=== PATIENT | female | born 1990 | race Caucasian/White ===

== ENCOUNTER 2018-11-08 23:40 | Emergency (ER) | payer OTHER ==
--- NOTE | 2018-11-09 00:24 | ED Physician Documentation ---
PD HPI ABD PAIN - Stated complaint Stated Complaint: ABD PX/VOMITING - Chief complaint Chief Complaint: Abd Pain - History obtained from History obtained from: Patient - History of Present Illness Timing - onset: Enter time (22:45) Timing - details: Abrupt onset, Waxing and waning Pain level now: 8 Quality: Cramping, Pain Location: Periumbilical Radiation: Other (no radiation) Improved by: Other (no ameliorating factors) Worsened by: Other (no exacerbating factors) Associated symptoms: Nausea, Vomiting, Diarrhea. No: Fever, Constipation Similar symptoms before: Has not had sx before Recently seen: Not recently seen Review of Systems Constitutional: denies: Fever, Chills, Sweats Cardiac: reports: Reviewed and negative Respiratory: reports: Reviewed and negative GI: reports: Abdominal Pain, Nausea, Vomiting, Diarrhea : denies: Dysuria, Frequency, Now EGA Musculoskeletal: reports: Reviewed and negative PD PAST MEDICAL HISTORY - Past Medical History Past Medical History: No - Past Surgical History Past Surgical History: No - Present Medications Home Medications: Ambulatory Orders Medication Instructions Recorded Confirmed Bcp 11/08/18 Diphenoxylate/Atropine [Lomotil] 1 each PO QID PRN #14 tablet 11/09/18 Ondansetron Odt [Zofran] 4 mg TL Q6H PRN #10 tablet 11/09/18 oxyCODONE [Roxicodone] 5 - 10 mg PO Q6H PRN #14 tablet 11/09/18 - Allergies Allergies/Adverse Reactions: Allergies Allergy/AdvReac Type Severity Reaction Status Date / Time No Known Drug Allergies Allergy Verified 11/08/18 23:56 - Living Situation Living Arrangement: reports: At home (visiting [place] from [place]) PD ED PE NORMAL - Vitals Vital signs reviewed: Yes - General General: Alert and oriented X 3, No acute distress (NAD at times but during H+P has episodes of obvious painful distress lasting few minutes per episode), Well developed/nourished - HEENT HEENT: Moist mucous membranes - Cardiac Cardiac: RRR, No murmur - Respiratory Respiratory: No respiratory distress, Clear bilaterally - Abdomen Abdomen: Normal bowel sounds, Soft, Non tender, Non distended - Back Back: No CVA TTP - Derm Derm: Normal color, Warm and dry - Extremities Extremities: No edema Results - Vitals Vitals: Vital Signs - 24 hr 11/08/18 11/08/18 11/09/18 23:50 23:55 01:55 Temperature 36.6 C Heart Rate 47 L 47 L 87 Respiratory 18 18 14 Rate Blood Pressure 125/75 125/75 113/62 O2 Saturation 100 100 100 Oxygen O2 Source Room air - Labs Labs: Laboratory Tests 11/09/18 11/09/18 11/09/18 00:38 00:38 01:28 WBC 12.4 H RBC 4.58 Hgb 14.5 Hct 43.9 MCV 95.9 MCH 31.8 H MCHC 33.1 RDW 13.6 Plt Count 249 MPV 7.2 L Neut # (Auto) 10.0 H Lymph # (Auto) 1.9 Armstrong # (Auto) 0.3 Eos # (Auto) 0.1 Baso # (Auto) 0.1 Absolute Nucleated RBC 0.00 Nucleated RBC % 0.0 Sodium 139 Potassium 4.0 Chloride 104 Carbon Dioxide 23 Anion Gap 12.0 BUN 17 Creatinine 1.0 Estimated GFR (MDRD) 66 L Glucose 84 Calcium 9.1 Total Bilirubin 0.5 AST 29 ALT 19 Alkaline Phosphatase 57 Total Protein 7.5 Albumin 3.8 Globulin 3.7 Albumin/Globulin Ratio 1.0 Lipase 30 Urine Color YELLOW Urine Clarity CLEAR Urine pH 5.5 Ur Specific [place] 1.025 Urine Protein NEGATIVE Urine Glucose (UA) NEGATIVE Urine Ketones TRACE Urine Occult Blood NEGATIVE Urine Nitrite NEGATIVE Urine Bilirubin NEGATIVE Urine Urobilinogen 0.2 (NORMAL) Ur Leukocyte Esterase NEGATIVE Ur Microscopic Review NOT INDICATED Urine Culture Comments NOT INDICATED Urine HCG, Qual 11/09/18 01:28 WBC RBC Hgb Hct MCV MCH MCHC RDW Plt Count MPV Neut # (Auto) Lymph # (Auto) Armstrong # (Auto) Eos # (Auto) Baso # (Auto) Absolute Nucleated RBC Nucleated RBC % Sodium Potassium Chloride Carbon Dioxide Anion Gap BUN Creatinine Estimated GFR (MDRD) Glucose Calcium Total Bilirubin AST ALT Alkaline Phosphatase Total Protein Albumin Globulin Albumin/Globulin Ratio Lipase Urine Color Urine Clarity Urine pH Ur Specific [place] 1.025 Urine Protein Urine Glucose (UA) Urine Ketones Urine Occult Blood Urine Nitrite Urine Bilirubin Urine Urobilinogen Ur Leukocyte Esterase Ur Microscopic Review Urine Culture Comments Urine HCG, Qual NEGATIVE PD MEDICAL DECISION MAKING - ED course Complexity details: reviewed results, re-evaluated patient, considered differential, d/w patient ED course: Reassuring blood tests (mild leukocytosis) and patient had good response to IV dilaudid. On reexam, she is awake, alert, conversant and reports resolution of her pain. Her reexam of abdomen again reveals nontender abdomen throughout with no distention. No surgical history and no evidence on HPI or exam of hernia. Further testing not indicated at this time (diagnoses considered but not suggested by HPI/ROS/physical exam include appendicitis, SBO, PUD, IBD, volvulus). Encouraged to return if worse in any way. She received one more dose of dilaudid prior to d/c for mild return of cramping pain, and given lomotil with rx for percocet, lomotil, and zofran. Departure - Departure Disposition: 01 Home, Self Care Clinical Impression: Vomiting and diarrhea Abdominal pain Qualifiers: Abdominal location: periumbilical Qualified Code(s): R10.33 - Periumbilical pain Condition: Good Instructions: ED Abdominal Pain Unkn Cause, ED Vomiting Diarrhea Nonspecific Ad Prescriptions: Diphenoxylate/Atropine [Lomotil] 1 each PO QID PRN #14 tablet PRN Reason: Diarrhea Ondansetron Odt [Zofran] 4 mg TL Q6H PRN #10 tablet PRN Reason: Nausea / Vomiting oxyCODONE [Roxicodone] 5 - 10 mg PO Q6H PRN #14 tablet PRN Reason: Pain Discharge Date/Time: 11/09/18 02:49
[2018-11-09] MEDS ORDERED: HYDROmorphone 1 MG/ML CARPUJECT IVP STA ×2 (00:43→02:23)
[2018-11-09] MEDS ORDERED: ONDANSETRON 4 MG/2 ML VIAL IVP STA (00:43)
[2018-11-09] MEDS ORDERED: SODIUM CHLORIDE 0.9% 1,000 ML IV STA (00:43)
[2018-11-09 00:49] LABS: BASOPHILS # (AUTO) 0.1 10^3/uL (0.0-0.1); BASOPHILS % (AUTO) 1.2 %; EOSINOPHILS # (AUTO) 0.1 10^3/uL (0.0-0.7); EOSINOPHILS % (AUTO) 0.6 %; HGB - HEMOGLOBIN 14.5 g/dL (12.0-16.0); LYMPHOCYTES # (AUTO) 1.9 10^3/uL (1.5-3.5); LYMPHOCYTES % (AUTO) 15.6 %; MEAN CORPUSCULAR HEMOGLOBIN 31.8 pg (27.0-31.0); MEAN CORPUSCULAR HGB CONC 33.1 g/dL (32.0-36.0); MEAN CORPUSCULAR VOLUME 95.9 fL (81.0-99.0); MEAN PLATELET VOLUME 7.2 fL (7.9-10.8); MONOCYTES # (AUTO) 0.3 10^3/uL (0.0-1.0); MONOCYTES % (AUTO) 2.2 %; NEUTROPHILS % (AUTO) 80.4 %; PLT - PLATELET COUNT 249 10^3/uL (130-450); RED BLOOD COUNT 4.58 10^6/uL (4.20-5.40); RED CELL DISTRIBUTION WIDTH 13.6 % (12.0-15.0); WHITE BLOOD COUNT 12.4 x10^3/uL (4.8-10.8)
[2018-11-09 00:58] LABS: ALBUMIN 3.8 g/dL (3.2-5.5); BILIRUBIN,TOTAL 0.5 mg/dL (0.2-1.0); CALCIUM 9.1 mg/dL (8.5-10.3); TOTAL PROTEIN 7.5 g/dL (6.7-8.2)
[2018-11-09 01:38] LABS: BILIRUBIN,URINE NEGATIVE (NEGATIVE); GLUCOSE, URINE (UA) NEGATIVE (NEGATIVE); KETONES,URINE (UA) TRACE mg/dL (NEGATIVE); LEUKOCYTE ESTERASE, URINE NEGATIVE (NEGATIVE); NITRITE,URINE NEGATIVE (NEGATIVE); OCCULT BLOOD,URINE NEGATIVE (NEGATIVE); PH,URINE 5.5 PH (5.0-7.5); PROTEIN,URINE NEGATIVE (NEGATIVE); UROBILINOGEN,URINE 0.2 (NORMAL) E.U./dL (NORMAL)
[2018-11-09 01:40] LABS: CLARITY,URINE CLEAR (CLEAR)
[2018-11-09 01:41] LABS: HCG UR QUAL NEGATIVE
[2018-11-09] MEDS ORDERED: KETOROLAC 30 MG/ML VIAL IVP STA (02:22)
[2018-11-09] MEDS ORDERED: DIPHENOX/ATROPINE 2.5/0.025 MG TABLET PO STA (02:23)
[2018-11-09] MEDS ORDERED: ONDANSETRON ODT 4 MG Prepack 2 TL STA (02:23)
[2018-11-09] MEDS ORDERED: oxyCODONE/ACET 5/325 Prepack 4 PO STA (02:23)
[2018-11-09 02:49] VITALS: BP 113/62
== END 2018-11-09 02:49 | disposition home or self-care (01) ==
LOC: ED 23:40
DX: R10.33 Periumbilical pain (principal); R11.2 Nausea with vomiting, unspecified; R19.7 Diarrhea, unspecified
CPT/HCPCS: 36415; 80053; 81003; 81025; 83690; 85025; 96374; 96375; 96376; 99283; 99284; A9270; J1170; 81001; 87086